=== PATIENT | male | born 1960 | race Two or more races ===

== ENCOUNTER 2019-01-02 16:56 | Emergency (ER) | payer OTHER ==
[~2019-01-02] VITALS: Ht 170.2 cm; Wt 78.0 kg
[2019-01-02] MEDS ORDERED: DexAMETHasone SOD PHOS 10MG/1ML VIAL INJ IM ONE (19:00)
[2019-01-02 19:43] VITALS: BP 126/82
== END 2019-01-02 19:43 | disposition home or self-care (01) ==
LOC: ER 16:56
DX: M65.331 Trigger finger, right middle finger (principal); Z91.013 Allergy to seafood
CPT/HCPCS: 73130; 96372; 99283; J1100

== ENCOUNTER 2024-06-24 09:17 | Emergency (ER) | payer OTHER ==
[~2024-06-24] VITALS: Ht 167.6 cm; Wt 74.1 kg
[2024-06-24 09:36] VITALS: BP 125/84; PULSE 66; RESP 19; TEMP 97; O2SAT 98
[2024-06-24] MEDS ORDERED: BENZ100C97 PO (10:10)
== END 2024-06-24 10:19 | disposition home or self-care (01) ==
LOC: ER 09:17
DX: R05.9 Cough, unspecified (principal); R07.9 Chest pain, unspecified; Z77.098 Contact with and (suspected) exposure to other hazardous, chiefly nonmedicinal, chemicals; Z88.8 Allergy status to other drugs, medicaments and biological substances
CPT/HCPCS: 71046; 93005

== ENCOUNTER 2024-07-03 06:23 | Emergency (ER) | payer OTHER ==
[~2024-07-03] VITALS: Ht 167.6 cm; Wt 74.3 kg
[~2024-07-03 06:23] MED LIST: BENZ100C97 PO
[2024-07-03] MEDS: IPRATROPIUM BROM 0.5 MG/2.5ML INH SOL NEB ONE (07:31)
[2024-07-03] MEDS: ALBUTEROL SULF 2.5 MG/0.5ML(0.5%) NEB SOLN NEB ONE (07:31)
[2024-07-03] MEDS: methylPREDNISolone SOD SUCC 125 MG/2 ML VL IM ONE (07:44)
[2024-07-03 07:48] VITALS: BP 130/80; PULSE 80; RESP 18; TEMP 97.9; O2SAT 98
[2024-07-03] MEDS ORDERED: AZIT-185 PO (08:03)
[2024-07-03] MEDS ORDERED: METH4PAK PO (08:03)
== END 2024-07-03 08:14 | disposition home or self-care (01) ==
LOC: ER 06:23
DX: J20.9 Acute bronchitis, unspecified (principal); Z77.098 Contact with and (suspected) exposure to other hazardous, chiefly nonmedicinal, chemicals
CPT/HCPCS: 71045; 94640; 96372; 99283; J2919

== ENCOUNTER 2025-01-16 09:09 | Emergency (ER) | payer OTHER ==
[~2025-01-16] VITALS: Ht 167.6 cm; Wt 77.7 kg
[~2025-01-16 09:09] MED LIST changes: +AZIT-185 PO; +METH4PAK PO
--- NOTE | 2025-01-16 09:49 | DVH ---
CLINICAL INDICATION: trauma TECHNIQUE: 3 radiographic views of the left foot were obtained. Comparison: None FINDINGS/IMPRESSION: There is no evidence of acute fracture or dislocation. 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
[2025-01-16 09:50] VITALS: BP 141/77; PULSE 64; RESP 16; TEMP 98.2; O2SAT 98
--- NOTE | 2025-01-16 10:20 | ED.PDOC ---
Musculoskeletal HPI Comments A 64 YEAR OLD MALE PRESENTS TO THE ED WITH CHIEF COMPLAINT OF LEFT FOOT PAIN. PATIENT REPORTS THAT WHILE AT WORK YESTERDAY, HE HAD STEPPED OFF OF HIS TRUCK AND STARTED TO EXPERIENCE LEFT FOOT PAIN TO THE LEFT SIDE AND TOP OF IT. PATIENT DENIES ANY FALL, INJURY, LEG PAIN, NUMBNESS, TINGLING, WEAKNESS, SOB, OR CHEST PAIN AT THIS TIME. NO OTHER SYMPTOMS REPORTED AT THIS TIME OF CARE. Chief Complaint: Lower Extremity Time Seen by MD: 10:18 Primary Care Provider: Rajehs Reviewed Notes: Nurses Notes, Medications, Allergies Allergies: Coded Allergies: Shellfish Allergy (Verified Allergy, Severe, 01/02/19) Home Meds Active Scripts Meloxicam (Meloxicam) 7.5 Mg Tab, 1 TAB PO BID, #30 TAB 1 Refill Prov:JUANCARLOS HUERTA 01/16/25 Methylprednisolone (Medrol Dosepak) 4 Mg Davide, 4 MG PO UD, #21 TAB UAD Prov:JUANCARLOS HUERTA 07/03/24 Azithromycin (ZITHROMAX TABLET) 250 Mg Tb, 250 MG PO DAILY, #6 TAB Prov:JUANCARLOS HUERTA 07/03/24 Benzonatate (Benzonatate) 100 Mg Cap, 1 CAP PO TID for 10 Days, #30 CAP 0 Refills Prov:SAMMY BISHOP NP 06/24/24 Information Source: Patient Mode of Arrival: Ambulatory Location: Left Extremity Location: Foot Timing: Days Prehospital treatment: None Severity: Mild Able to Move Extremity: Yes Bear Weight: Fully Pain: Moderate Mechanism: Spontaneous Circumstances: Work Related Onset of Symptoms: Spontaneous Symptoms: Swelling, Pain DVT Risk Factors: NONE Last Tetanus: UTD Associated signs and symptoms: Foot pain Past Medical History PAST MEDICAL HISTORY: Denies Surgical History: Denies all surgeries Family History Family History: Reviewed,noncontributory to illness Social History Smoker: Non-Smoker Alcohol: Denies ETOH Use Drugs: Denies Drug Use Lives In: Home Constitutional: denies: chills, diaphoresis, fatigue, fever, malaise, sweats, weakness, others EENTM: denies: blurred vision, double vision, ear bleeding, ear discharge, ear drainage, ear pain, ear ringing, eye pain, eye redness, hearing loss, mouth pain, mouth swelling, nasal discharge, nose bleeding, nose congestion, nose pain, photophobia, tearing, throat pain, throat swelling, voice changes, others Respiratory: denies: cough, hemoptysis, orthopnea, SOB at rest, shortness of breath, SOB with excertion, stridor, wheezing, others Cardiovascular: denies: chest pain, dizzy spells, diaphoresis, Dyspnea on exertion, edema, irregular heart beat, left arm pain, lightheadedness, palpitations, PND, syncope, others Gastrointestinal: denies: abdomen distended, abdominal pain, blood streaked bowels, constipated, diarrhea, dysphagia, difficulty swallowing, hematemesis, melena, nausea, poor appetite, poor fluid intake, rectal bleeding, rectal pain, vomiting, others Genitourinary: denies: burning, dysuria, flank pain, frequency, hematuria, incontinence, penile discharge, penile sore, pain, testicle pain, testicle swelling, urgency, others Neurological: denies: dizziness, fainting, headache, left sided numbness, left sided weakness, numbness, paresthesia, pre-existing deficit, right sided numbness, right sided weakness, seizure, speech problems, tingling, tremors, weakness, others Musculoskeletal: reports: joint pain, joint swelling, others (LT FOOT PAIN); denies: back pain, gout, muscle pain, muscle stiffness, neck pain Integumetry: denies: bruises, change in color, change in hair/nails, dryness, laceration, lesions, lumps, rash, wounds, others Allergic/Immunocompromised: denies: Difficulty Healing, Frequent Infections, Hives, Itching, others Hematologic/Lymphatic: denies: anemia, blood clots, easy bleeding, easy bruising, swollen glands, others Endocrine: denies: excessive hunger, excessive sweating, excessive thirst, excessive urination, flushing, intolerance to cold, intolerance to heat, unexplained weight gain, unexplained weight loss, others Psychiatric: denies: anxiety, bipolar disorder, depression, hopeless, panic disorder, schizophrenia, sleepless, suicidal, others All Other Systems: Reviewed and Negative Physical Exam General Appearance: No Apparent Distress, Normal HEENT: Normal ENT Inspection, PERRL/EOMI, Pharynx Normal, TMs Normal Neck: Full Range of Motion, Non-Tender, Normal, Normal Inspection Respiratory: Chest Non-Tender, Lungs Clear, No Accessory Muscle Use, No Respiratory Distress, Normal Breath Sounds Cardiovascular: No Edema, No JVD, No Murmur, No Gallop, Normal Peripheral Pul ses, Regular Rate/Rhythm Breast Exam: Deferred Gastrointestinal: No Organomegaly, Non Tender, No Pulsatile Mass, Normal Bowel Sounds, Soft Genitalia: Deferred Pelvic: Deferred Rectal: Deferred Extremities: No calf tenderness, Normal capillary refill, Normal range of motion, No pedal edema, Tender (AND MILD SWELLING ON LEFT FOOT, NO BONY TENDERNESS AND DEFORMITY. ) Musculoskeletal : Apperance: Normal Neurologic: Alert, pickle cutter II-XII nml as Tested, No Motor Deficits, Normal Affect, Normal Mood, No Sensory Deficits Cerebellar Function: Normal Reflexes: Normal Skin: Dry, Normal Color, Warm Peripheral Pulses: 2+ carotid (R), 2+ carotid (L), 2+ dorsalis pedis (R), 2+ dorsalis pedis (L) Lymphatic: No Adenopathy Was a procedure done? Was a procedure done?: No Differential Diagnosis EXT Differential Diagnosis: Fracture, Sprain, Strain, Arthritis X-Ray, Labs, Meds, VS Vital Signs Date Time Temp Pulse Resp B/P (MAP) Pulse Ox O2 Delivery O2 Flow Rate FiO2 01/16/25 09:50 98.2 64 16 141/77 (98) 98 98.2 01/16/25 09:50 64 16 98 Room Air 01/16/25 09:17 98.2 64 16 141/77 (98) 98 98.2 Current Medications Medications (Trade) Dose Ordered Sig/Joe Route Start Time Stop Time Status Last Admin Acetaminophen (Tylenol Tablet Or Capsule) 1,000 mg ONCE ONCE PO 01/16/25 10:15 01/16/25 10:16 DC 01/16/25 10:21 LT FOOT XR: FINDINGS/IMPRESSION: There is no evidence of acute fracture or dislocation. 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 X-Ray, Labs, Meds, VS Comment EXTERNAL MEDICAL RECORDS REVIEWED: [NONE] INDEPENDENT HISTORIANS: [NONE] SOCIAL DETERMINANTS OF HEALTH: [NONE] LABS ORDERED: NONE REVIEWED AND INTERPRETED RESULTS: LT FOOT XR IMAGING ORDERED: NONE TREATMENTS ORDERED: TYLENOL 1G PO PROCEDURES PERFORMED: NONE CRITICAL CARE TIME: NONE I HAVE DISCUSSED THE PATIENT WITH THE ATTENDING PHYSICIAN DR. ABRAHAM AND HE Malgorzata BURNS WITH THE PATIENT'S PLAN OF CARE AND DISPOSITION. BASED ON HISTORY OF PRESENT ILLNESS, AND PHYSICAL EXAM, PATIENT WILL BE DISCHARGED HOME. DISCUSSED PLAN FOR DISCHARGE HOME WITH RX: MOBIC 7.5MG. MEDICATION WARNINGS GIVEN. SHARED DECISION MAKING: DISCUSSED WITH PATIENT THAT THEIR WORKUP WAS NORMAL. PATIENT INSTRUCTED TO FOLLOW UP WITH PRIMARY CARE PROVIDER IN 1-2 DAYS FOR RE- EVALUATION OF SYMPTOMS. PATIENT VERBALIZES UNDERSTANDING TO RETURN TO ED FOR NEW OR WORSENING SYMPTOMS OR IF FOLLOW UP WITH PCP CANNOT BE OBTAINED. PATIENT FEELS COMFORTABLE GOING HOME AT THIS TIME. ALL QUESTIONS ADDRESSED AT TIME OF DISCHARGE. Time of 1ST Reevaluation: 10:45 Reevaluation 1ST: Improved Patient Education/Counseling: Diagnosis, Treatment, Need For Follow Up Family Education/Counseling: Diagnosis, Treatment, No Family Present Medical Screening: No EMC Exist At This Time Departure 1 Departure Time of Disposition: 10:45 Impression: Primary Impression: Sprain of left foot Qualified Codes: S93.602A - Unspecified sprain of left foot, initial encounter Additional Impression: Degenerative joint disease of left foot Qualified Codes: M19.072 - Primary osteoarthritis, left ankle and foot Disposition: 01 HOME / SELF CARE / HOMELESS Condition: Stable Additional Instructions: FOLLOW-UP WITH WORKMAN COMP IN 1 TO 2 DAYS. TAKE MEDICATIONS PRESCRIBED. RETURN TO ED FOR ANY NEW OR WORSENING SYMPTOMS. e-Prescriptions Meloxicam (Meloxicam) 7.5 Mg Tab 1 TAB PO BID, #30 TAB 1 Refill Prov: JUANCARLOS HUERTA 01/16/25 Discharged With: Self Critical Care Note Critical Care Time?: No Stability Stability form required: No Heart Score Heart Score: Heart Score Response (Comments) Value History N/A 0 EKG N/A 0 Age N/A 0 Risk Factors N/A 0 Troponin N/A 0 Total 0 I personally scribed for JUANCARLOS HUERTA ([email or web address]) on 01/16/25 at 10:20. Electronically submitted by Jake Anderson ([email or web address]). JUANCARLOS HUERTA January 16, 2025 10:20
[2025-01-16] MEDS: ACETAMINOPHEN 500 MG TAB or CAP PO ONE (10:21)
[2025-01-16] MEDS ORDERED: MELO7.5T7 PO (10:23)
== END 2025-01-16 10:26 | disposition home or self-care (01) ==
LOC: ER 09:09
DX: S93.692A Other sprain of left foot, initial encounter (principal); M19.072 Primary osteoarthritis, left ankle and foot; Z88.8 Allergy status to other drugs, medicaments and biological substances; X58.XXXA Exposure to other specified factors, initial encounter; Y93.89 Activity, other specified; Y92.89 Other specified places as the place of occurrence of the external cause; Y99.8 Other external cause status
CPT/HCPCS: 73630